=== PATIENT | female | born 1995 | race American Indian/Alaskan Native ===

== ENCOUNTER 2019-01-07 02:33 | Emergency (ER) | payer SELFPAY ==
[2019-01-07] MEDS ORDERED: PEPCID IV ONE (03:06)
[2019-01-07] MEDS ORDERED: ZOFRAN IV ONE (03:06)
[2019-01-07] MEDS ORDERED: BENADRYL IV ONE (03:06)
[2019-01-07] MEDS ORDERED: SOLU-Medrol IV ONE (03:06)
--- NOTE | 2019-01-07 05:17 | Emergency Department Report ---
ED General Adult HPI - General Chief complaint: Eye Problems Stated complaint: SWOLLEN EYES, SNEEZING Source: patient Mode of arrival: Ambulatory Limitations: No Limitations - History of Present Illness Initial comments: Patient is a 23-year-old female with a history of asthma presents to ED with complaint of acute onset persistent bilateral eyelid swelling, nasal tremaine estion, throat discomfort and nausea for the last one hour. Patient states that she was asleep when she woke up with bilateral eyelid swelling and nasal congestion and also felt sore throat and nausea. Patient states that she looked at the her face on the mirror and noticed the swollen eyelids and decided to come to the ED for evaluation. Patient states that she is not aware of any new thing at home such as food, detergents or lotions to hae cause these symptoms. Patient denies symptoms of breath, cough, wheezing, abdominal pain, swollen lips and tongue, swollen throat, dysphagia, dysphonia, diarrhea, dizziness or headache, fever and chills. MD Complaint: acute allergic reaction; eyelid swelling -: Sudden, hour(s) (1) Location: face Radiation: non-radiation Severity scale (0 -10): 5 Quality: aching, dull, other Consistency: constant Improves with: none Worsens with: none Associated Symptoms: denies other symptoms. denies: chest pain, cough, diaphoresis, fever/chills, headaches, loss of appetite, malaise, nausea/vomiting, rash, seizure, shortness of breath, syncope, weakness, other Treatments Prior to Arrival: none - Related Data Previous Rx's Medication Instructions Recorded Last Taken Type diphenhydrAMINE [Benadryl CAP] 25 mg PO Q6HR PRN #30 capsule 01/07/19 Unknown Rx methylPREDNISolone [Medrol 4MG 4 mg PO DAILY #21 tab.ds.pk 01/07/19 Unknown Rx DOSEPAK (21 tabs)] raNITIdine HCl [Zantac] 150 mg PO Q12H #30 tablet 01/07/19 Unknown Rx Allergies Allergy/AdvReac Type Severity Reaction Status Date / Time No Known Allergies Allergy Unverified 01/07/19 02:39 ED Review of Systems ROS: Stated complaint: SWOLLEN EYES, SNEEZING Other details as noted in HPI Constitutional: denies: chills, fever Eyes: eye pain, other (Swollen puffy eyelids). denies: eye discharge, vision change ENT: throat pain, congestion. denies: ear pain Respiratory: denies: cough, shortness of breath, SOB with exertion, SOB at rest, wheezing Cardiovascular: denies: chest pain, palpitations, paroxysmal nocturnal dyspnea, other Endocrine: no symptoms reported Gastrointestinal: nausea. denies: abdominal pain, diarrhea Genitourinary: denies: urgency, dysuria, discharge Musculoskeletal: denies: back pain, joint swelling, arthralgia Skin: denies: rash, lesions Neurological: denies: headache, weakness, paresthesias Psychiatric: denies: anxiety, depression Hematological/Lymphatic: denies: easy bleeding, easy bruising ED Past Medical Hx - Past Medical History Previous Medical History?: Yes Hx Asthma: Yes - Surgical History Past Surgical History?: No - Social History Smoking Status: Former Smoker Substance Use Type: None - Medications Home Medications: Home Medications Medication Instructions Recorded Confirmed Last Taken Type diphenhydrAMINE [Benadryl CAP] 25 mg PO Q6HR PRN #30 capsule 01/07/19 Unknown R x methylPREDNISolone [Medrol 4MG 4 mg PO DAILY #21 tab.ds.pk 01/07/19 Unknown Rx DOSEPAK (21 tabs)] raNITIdine HCl [Zantac] 150 mg PO Q12H #30 tablet 01/07/19 Unknown Rx ED Physical Exam - General Limitations: No Limitations General appearance: alert, in no apparent distress - Head Head exam: Present: atraumatic, normocephalic, normal inspection - Eye Eye exam: Present: normal appearance, PERRL, EOMI, other (Bilateral swollen eyelids) Pupils: Present: normal accommodation - ENT ENT exam: Present: normal orophraynx, mucous membranes moist, TM's normal bilaterally, normal external ear exam, other (Grossly congested nasal passages with swollen nasal turbinates) - Neck Neck exam: Present: normal inspection, full ROM. Absent: tenderness, lymphadenopathy - Respiratory Respiratory exam: Present: normal lung sounds bilaterally. Absent: respiratory distress, wheezes, rales, rhonchi, chest wall tenderness, accessory muscle use - Cardiovascular Cardiovascular Exam: Present: regular rate, normal rhythm, normal heart sounds. Absent: systolic murmur, diastolic murmur, rubs, gallop - GI/Abdominal GI/Abdominal exam: Present: soft, normal bowel sounds. Absent: distended, tenderness, hyperactive bowel sounds, hypoactive bowel sounds, organomegaly - Rectal Rectal exam: Present: deferred - Extremities Exam Extremities exam: Present: normal inspection, full ROM, normal capillary refill - Back Exam Back exam: Present: normal inspection, full ROM. Absent: tenderness, CVA t enderness (R), CVA tenderness (L), muscle spasm, paraspinal tenderness - Neurological Exam Neurological exam: Present: alert, oriented X3, CN II-XII intact, normal gait, reflexes normal - Psychiatric Psychiatric exam: Present: normal affect, normal mood - Skin Skin exam: Present: warm, dry, intact, normal color. Absent: rash, erythema, urticaria ED Course Vital Signs 01/07/19 02:37 Temperature 98.3 F Pulse Rate 82 Respiratory 14 Rate Blood Pressure 126/78 O2 Sat by Pulse 99 Oximetry - Reevaluation(s) Reevaluation #1: 01/07/19 05:20 This is a 23-year-old female who presented to the ED with symptoms of acute allergic reaction to an unknown substance, characterized by swollen eyelids, rhinorrhea, nausea and discomfort. In the ED, patient is alert and oriented 3, with stable vital signs and is in no acute distress. Patient was treated in the ED for acute allergic reaction with Solu-Medrol, Benadryl and Pepcid, and was observed after treatment for about 2 hours. On reevaluation, patient's facial swelling has resolved as well as rhinorrhea. Patient is discharged home on medications and advised to follow-up with her primary care physician in 7-10 days for reevaluation. Patient was advised to return to the ED immediately if symptoms get worse. ED Medical Decision Making - Medical Decision Making This is a 23-year-old female who presented to the ED with symptoms of acute allergic reaction to an unknown substance, characterized by swollen eyelids, rhinorrhea, nausea and discomfort. In the ED, patient is alert and oriented 3, with stable vital signs and is in no acute distress. Patient was treated in the ED for acute allergic reaction with Solu-Medrol, Benadryl and Pepcid, and was observed after treatment for about 2 hours. On reevaluation, patient's facial swelling has resolved as well as rhinorrhea. Patient is discharged home on medications and advised to follow-up with her primary care physician in 7-10 days for reevaluation. Patient was advised to return to the ED immediately if symptoms get worse. - Differential Diagnosis acute allergic reaction; facial swelling; Allergic rhinitis Critical care attestation.: If time is entered above; I have spent that time in minutes in the direct care of this critically ill patient, excluding procedure time. ED Disposition Clinical Impression: Acute urticaria, Facial swelling Acute allergic reaction Qualifiers: Encounter type: initial encounter Qualified Code(s): T78.40XA - Allergy, unspecified, initial encounter Allergic rhinitis Qualifiers: Allergic rhinitis trigger: unspecified Allergic rhinitis seasonality: unspecified Qualified Code(s): J30.9 - Allergic rhinitis, unspecified Disposition: TO HOME OR SELFCARE Is pt being admited?: No Does the pt Need Aspirin: No Condition: Stable Instructions: Urticaria (ED), Allergies (ED) Additional Instructions: Take Medications with food, drink plenty fluids and follow up with your primary care physician in 7-10 days for reevaluation. Return to the ED immediately if symptoms get worse. Prescriptions: diphenhydrAMINE [Benadryl CAP] 25 mg PO Q6HR PRN #30 capsule PRN Reason: Allergy Symptoms methylPREDNISolone [Medrol 4MG DOSEPAK (21 tabs)] 4 mg PO DAILY #21 tab.ds.pk raNITIdine HCl [Zantac] 150 mg PO Q12H #30 tablet Referrals: [facility] [Outside] - 3-5 Days Time of Disposition: 05:17 Print Language: LAO
[2019-01-07 05:34] VITALS: BP 118/76
== END 2019-01-07 05:35 | disposition home or self-care (01) ==
LOC: ED 02:33
DX: L50.9 Urticaria, unspecified (principal); T78.40XA Allergy, unspecified, initial encounter; J30.9 Allergic rhinitis, unspecified; Z79.899 Other long term (current) drug therapy; Z87.891 Personal history of nicotine dependence; X58.XXXA Exposure to other specified factors, initial encounter
CPT/HCPCS: 96374; 96375; 99282; J1200; J2405; J2930